=== PATIENT | female | born 1985 | race Caucasian/White ===

== ENCOUNTER → 2024-07-21 10:15 | Outpatient (REF) | payer OTHER, SELFPAY | LOC: HWRAD 10:15 | PROVIDERS: ATTENDING PHYSICIAN Urology; FAMILY PHYSICIAN Family Medicine | DX: N30.10 Interstitial cystitis (chronic) without hematuria (principal); M62.89 Other specified disorders of muscle; N80.9 Endometriosis, unspecified; R68.82 Decreased libido; N32.81 Overactive bladder | CPT/HCPCS: 76770; 76856 ==

== ENCOUNTER 2024-10-25 06:01 | Day surgery (SDC) | payer OTHER, SELFPAY ==
--- NOTE | 2024-10-10 13:35 | PTCARENOTE ---
Abnormal EKG reviewed by Dr. [place], no further action requested.
[2024-10-11 12:31] VITALS: BMI 23.8
[2024-10-25] VITALS (13 sets, daily range): BP systolic 109–149; BP diastolic 76–92; BMI 23.8
[2024-10-25] MEDS: NORMOSOL-R/PLASMALYTE-A 1000 IV ×2 (06:38→10:16)
[2024-10-25] MEDS: HEPARIN 5000 UNITS SC (06:38)
[2024-10-25] MEDS: TRANSDERM-SCOP 1 PATCH TRANSDERM (06:45)
[2024-10-25] MEDS: DILAUDID 0.5 MG IV ×2 (09:37→09:51)
[2024-10-25] MEDS: MOTRIN 600 MG PO (10:42)
== END 2024-10-25 11:37 | disposition home or self-care (01) ==
LOC: SDS 06:01
PROVIDERS: ATTENDING PHYSICIAN Obstetrics & Gynecology; FAMILY PHYSICIAN Family Medicine
DX: N80.3A3 Superficial endometriosis of the bilateral uterosacral ligament(s) (principal); R10.2 Pelvic and perineal pain; N72 Inflammatory disease of cervix uteri; N80.03 Adenomyosis of the uterus; N83.8 Other noninflammatory disorders of ovary, fallopian tube and broad ligament; D25.1 Intramural leiomyoma of uterus; N94.10 Unspecified dyspareunia
CPT/HCPCS: 58571; 52204; 58662; 88305; 88307; 36415; 86850; 86900; 86901; 93005; C1713

== ENCOUNTER 2025-05-12 10:54 | Emergency (ER) | payer OTHER, SELFPAY ==
[2025-05-12 11:00] VITALS: BP 155/92
[2025-05-12 11:30] LABS: Hematocrit 44.0 % (37.0-47.0); Hemoglobin 15.0 g/dL (12.0-16.0); Mean Corp Hgb Conc. 34.1 g/dL (33.0-37.0); Mean Corpuscular Volume 91.3 fL (81.0-99.0); Nucleated Red Blood Cells % 0 %; Platelet Count 179 10^3/uL (130-400); Red Cell Dist. Width 11.8 % (11.5-14.5)
[2025-05-12 11:47] LABS: ALT (SGPT) 10 U/L (0-35); AST (SGOT) 22 U/L (14-36); Albumin 4.7 g/dl (3.5-5.0); Alkaline Phosphatase 79 U/L (38-126); Blood Urea Nitrogen 13 mg/dl (7-17); Calcium 9.9 mg/dl (8.4-10.2); Carbon Dioxide 28 mmol/L (22-30); Chloride 103 mmol/L (98-107); Glucose 106 mg/dl (70-99); Potassium 4.3 mmol/L (3.5-5.1); Sodium 136 mmol/L (135-145); Total Protein 7.6 g/dl (6.3-8.2); eGFR > 60.00
[2025-05-12 11:58] LABS: Troponin I < 0.012 ng/ml
[2025-05-12 12:00] VITALS: BP 123/84
--- NOTE | 2025-05-12 12:00 | ED.GENMED ---
History of Present Illness
General
Chief Complaint: Chest Pain
Source: patient
Exam Limitations: none
Time Seen by Provider: 05/12/25 11:58
History of Present Illness
History of Present Illness:
39yoF with a history of SVT presenting for evaluation of chest pain. Symptoms began around 7 AM this morning when she was getting ready for the day. She reports a 'deep, searing' pain in her left chest which feels similar to her prior bouts of
SVT. She checked her heart rate which was normal in the 70s. Her pain has been intermittent throughout the morning but seems to be improving. Her pain was lasting 15 to 20 minutes at a time earlier but is now only lasting a minute or two.
Nothing seems to make the pain better or worse. She is otherwise feeling well and denies any pleuritic pain, shortness of breath, leg swelling, calf pain, fevers, cough, nausea, vomiting, syncope. Patient called her cover maker and was advised to
come to the ED for evaluation. She follows with Dr. Snow and has an echocardiogram scheduled for next week.
Phy Exam
General Physical Exam
General Presentation: well appearing and no apparent distress
General Skin: warm and dry
General Habitus: normal
General Mental: alert
ENT Exam
ENT Exam: normocephalic
Cardiovascular Exam
Cardiovascular Exam: regular rate/rhythm, no edema and no murmur
Pulmonary Exam
Pulmonary Exam: lungs clear, no respiratory distress, no rales, no crackles, no rhonchi and no wheezing
Neurological Exam
Neurological Exam: alert
[place] Coma Scale
Eye Opening: Spontaneous
Verbal Response: Oriented
Motor Response: Obeys Commands
GCS Total Score: 15
Skin Exam
Skin Exam: normal color and warm/dry
Psychiatric Exam
Psychiatric Exam: normal mood/affect
Scores
Heart Score for Chest Pain Patients
STEMI patient?: No
History: Slightly or Non-Suspicious
ECG: Normal
Age: </= 45 years
Risk Factors: No Risk Factors
Troponin: </= Normal Limit
Heart Score for Chest Pain Patients: 0
Heart Score Risk: 2.5% MACE over next 6 weeks
Course
Orders/Labs/Results
Orders:
Orders
05/12/25 10:55
ECG [Electrocardiogram (*1)] Urgent
Reason for Study: Chest Pain
EKG- Treatment ONCE
05/12/25 11:19
Complete Blood Count/With Diff Urgent
Comprehensive Metabolic Panel Urgent
Troponin I Urgent
Abnormal Lab Results
05/12/25
11:19
MCH 31.1 H pg
(27.0-31.0)
Glucose 106 H mg/dl
(70-99)
05/12/25 11:19
05/12/25 11:19
Vital Signs
Initial and Last Documented VS:
Initial Vital Signs
Temp Pulse Resp BP Pulse Ox
98.0 F 65 20 155/92 99
05/12/25 11:00 05/12/25 11:00 05/12/25 11:00 05/12/25 11:00 05/12/25 11:00
Last Documented Vital Signs
Temp Pulse Resp BP Pulse Ox
98.0 F 61 16 123/84 100
05/12/25 11:00 05/12/25 12:15 05/12/25 12:00 05/12/25 12:00 05/12/25 12:15
MDM/Problems Addressed
Differential Diagnosis Includes:
39yoF here with L sided chest pain that began this morning. Feels like her prior episodes of SVT but HR has been normal. Currently feeling better. VSS. HR in the 60s on initial exam. She is well appearing in no distress and exam is reassuring.
Differential diagnosis includes but is not limited to: musculoskeletal, pleurisy, arrhythmia, doubt ACS, doubt PE as oxygen saturation is 100% and HR is in the 60s
Workup initiated in triage. EKG shows normal sinus rhythm without ischemic changes or ectopy and troponin undetectable. Remainder of labs unremarkable. Patient reports she is feeling significantly improved compared to earlier today. Did
recommend delta troponin/EKG which patient declines. She has an appointment scheduled for next week to have an echocardiogram completed. She was advised to monitor her heart rate at home and follow-up with her cover maker. ED return precautions
reviewed and she was discharged in stable condition.
*Pulse Oximetry
SaO2: 100
Oxygen Mode of Delivery: Room air
Patient hypoxic: no
*EKG
Interpreted by ED Provider?: Yes
EKG Intrepretation Date: 05/12/25
Heart Rate: 66
Rate: normal
Rhythm: sinus
[place]: right axis deviation
Interval: normal interval
QRS Pattern: normal QRS
Ischemia: no ischemia
*Critical Care Note
Total Time (30-74mins, 75-104mins- exclusive of procedures): Not Applicable
ED Attending Note
-
Portions of this chart may have been created with voice recognition software.� Occasional wrong word or��sound alike� substitutions may have occurred due to the inherent limitations of voice recognition software.
Discharge Plan
Departure
Patient Disposition: Home (Routine Discharge)
Date of Disposition: 05/12/25
Time of Disposition: 12:16
Patient with high blood pressure during this ER visit?: Yes
Discharge Problem:
Chest pain
Instructions: Chest Pain PCP Follow Up
Prescriptions:
No Action
desog-e.estradiol/e.estradiol [[place] (28)] 0.15-0.02 mgx21 /0.01 mg x 5 Tablet
1 tab PO DAILY
ibuprofen [Advil] 200 mg Tablet
400 - 600 mg PO BIDPRN PRN (Reason: pain)
levothyroxine [Synthroid] 88 mcg Tablet
88 mcg PO DAILY
amitriptyline 10 mg Tablet
10 - 20 mg PO HS
nadolol 40 mg tablet
40 mg PO NOON
Referrals:
Josse Rutledge Jr., DO [Family Provider, Internal Medicine]
Activity Restrictions/Additional Instructions:
Please follow-up with your cover maker and complete your echocardiogram next week as previously scheduled.
Monitor your heart rate at home and return to the ER with any new or worsening symptoms.
Interventions
Interventions:
*Risk Screen - Suicide Last Done: 05/12/25 11:23
*General Assessment Last Done: 05/12/25 11:00
*Neglect/Abuse Screening Last Done: 05/12/25 11:23
*ED- Fall Risk Assessment Last Done: 05/12/25 11:23
*ED COVID-19 Vaccine History Last Done: 05/12/25 11:12
*ED Influenza Vaccine History Last Done: 05/12/25 11:23
*Nursing Disposition Last Done: 05/12/25 12:29
ED- Cardiac Assessment Last Done: 05/12/25 11:23
Discharge Date and Time
Discharge Date/Time: 05/12/25 12:30
Print Language: WELSH
== END 2025-05-12 12:30 | disposition home or self-care (01) ==
LOC: EMR 10:54
PROVIDERS: EMERGENCY PHYSICIAN Emergency Medicine; FAMILY PHYSICIAN Family Medicine
DX: R07.89 Other chest pain (principal); Z86.79 Personal history of other diseases of the circulatory system
CPT/HCPCS: 99283; 80053; 84484; 85025; 93005

== ENCOUNTER → 2025-05-25 07:58 | Outpatient (REF) | payer OTHER, SELFPAY | LOC: HWRCS 07:58 | PROVIDERS: ATTENDING PHYSICIAN Nurse Practitioner; FAMILY PHYSICIAN Family Medicine | DX: R06.09 Other forms of dyspnea (principal); I47.10 Supraventricular tachycardia, unspecified | CPT/HCPCS: 93306 ==

== ENCOUNTER → 2025-05-25 16:58 | Outpatient (REF) | payer OTHER, SELFPAY | LOC: WDC 16:58 | PROVIDERS: ATTENDING PHYSICIAN Obstetrics & Gynecology Gynecology; FAMILY PHYSICIAN Family Medicine | DX: Z12.31 Encounter for screening mammogram for malignant neoplasm of breast (principal) | CPT/HCPCS: 77063; 77067 ==